=== PATIENT | female | born 1950 | race Caucasian/White ===

== ENCOUNTER 2018-02-13 18:23 | Emergency (ER) | payer OTHER, BC ==
--- NOTE | 2018-02-13 18:46 | EDPHY ---
H & P Smoking Status: Never smoked Time Seen by Provider: 02/13/18 18:38 HPI/ROS: CLINICAL IMPRESSION: Closed left comminuted intra-articular distal radius fracture ASSESSMENT/PLAN: 67-year-old female presents to the emergency department after a ground level fall onto the left wrist. No open wound, distal neurovascular exam intact. X- ray findings show a closed, comminuted, displaced distal radius fracture. Patient received a hematoma block and was placed in traction with joint reduction performed by Dr. Mccloud. She was then placed in a sugar-tong splint and sling. Neurovascular exams remained intact prior to and after sling placement. Orthopedic referral given, pain meds prescribed, warning signs return to ED sooner outlined and discharge. DIFFERENTIAL DX: Differential diagnosis includes but not limited to acute fracture, dislocation, intra-articular fracture, neurovascular injury. ED PROCEDURES: Hematoma block and joint reduction with C-arm performed by Dr. Mccloud, please see his note for details. Procedure: Splint placement. A forearm sugar-tong and sling to left wrist was applied by photographic reproduction technician, supervised by myself. After application of the splint I returned and re- examined the patient. The splint was adequately immobilizing the joint and distal to the splint the patient's circulation and sensation was intact. ED COURSE: CHIEF COMPLAINT: Left wrist pain HPI: This is a pleasant 67-year-old female who presents to the emergency department after she fell off a chair while trying to hang a brief and landed on a flexed left wrist. Patient reports only wrist pain and no elbow pain. She is right- hand dominant. No open wounds. No reported sensory changes to the fingers or thumb. No forearm pain. She is declining pain medication at this time. PAST MEDICAL HISTORY: Hypothyroidism, depression Pertinent Past Surgical History: No prior orthopedic surgery Social History: , lives with her , vaccines up-to-date, right- hand dominant REVIEW OF SYSTEMS: All other systems negative Constitutional: No fever, no chills Musculoskeletal: No deformity, + joint pain Skin: No rashes, color change or open wounds. Neurological: No sensory loss or weakness. PHYSICAL EXAM: General Appearance: Alert, oriented, appropriate for age, cooperative, NAD, well hydrated, non-toxic appearing, VSS, no hypoxia. Neurological: Alert and oriented x 3, normal sensation and strength of extremities Skin: Warm, dry, no rashes, no nodules on palpation. Musculoskeletal: Obvious deformity to left wrist. Distal neurovascular exam intact. Cap refill 2 sec. No forearm or elbow pain. No open wound. MEDICAL DECISION MAKING: Patient was seen independently.Secondary supervising physician at time of evaluation was Dr. Mccloud. Diagnosis: Closed, comminuted, distal left radius fracture . New, requires workup Summary: See assessment and plan for summary of ED visit Independent visualization of images, tracing, or specimens yes. Discussed patient with another provider Dr. Mccloud Patient Progress stable. (Campbell Naranjo) Constitutional: Initial Vital Signs Temperature (C) 36.3 C 02/13/18 18:28 Heart Rate 57 L 02/13/18 18:28 Respiratory Rate 18 02/13/18 18:28 O2 Sat (%) 94 02/13/18 18:28 O2 Delivery Mode Room Air Allergies/Adverse Reactions: No Known Allergies Allergy (Unverified 02/13/18 18:31) Home Medications: Medication Instructions Recorded Celexa 08/19/15 Phenazopyridine HCl [Pyridium] 100 mg PO TID PRN #6 tab 08/19/15 Synthroid 08/19/15 traZODONE 08/19/15 Hydrocodone/APAP 5/325 [[place] 1 - 2 tab PO Q4H PRN #10 tab 02/13/18 5/325 (*)] MDM/Departure - [facility] Imaging: I viewed and interpreted images myself - [facility] Imaging Results: Imaging Impressions Wrist X-Ray 02/13/18 18:32 Impression: Comminuted intra-articular fracture of the distal radius as described with ulnar styloid fracture. Wrist X-Ray 02/13/18 19:25 Impression: Comminuted intra-articular fracture of the distal radius as described with ulnar styloid fracture. ED Course/Re-evaluation: Independent physician evaluation: I evaluated and participated in the management of the patient. I also evaluated the patient independently. My co-signature indicates that I have reviewed this chart and I agree with the findings and plan of care as documented. My personal H&P findings include: Patient presents to the ED with a obvious displaced and angulated Colles fracture from mechanical fall involving the left wrist. She has no complaints of acute numbness or weakness. Physical exam: General Appearance: Alert, no distress Head: Atraumatic Eyes: Pupils equal, round, reactive ENT, Mouth: No hemotympanum, no oral trauma Neck: Nontender, trachea midline Respiratory: No chest wall tender, no subcutaneous air, lungs clear bilaterally Cardiovascular: Regular rate and rhythm Abdomen: Abdomen is soft and nontender, pelvis stable Skin: No lacerations, No abrasion Back: No midline T/L/S pain Extremities: Obvious deformity noted to the left wrist Neurological: 5/5 strength and sensation noted throughout the left upper extremity ED course: Procedure: Procedure: Dislocation reduction. Indication: Dislocation The fracture dislocation involving the left wrist was reduced in the usual fashion without complications. The patient did undergo a hematoma block performed by myself under sterile conditions with 10 mL of 1% lidocaine. Post reduction the patient's neurovascular exam is normal. Post reduction x-ray demonstrates reduction of the joint to the anatomic position. The procedure was performed by myself. The patient has been placed in a sugar-tong splint. She will be referred to Dr. Rodrigues from Orthopedic surgery. (Artie Mccloud) - Depart Disposition: Home, Routine, Self-Care Clinical Impression: Left wrist fracture Condition: Good Instructions: Wrist Fracture in Adults (ED), Closed Reduction (ED) Additional Instructions: DISCHARGE INSTRUCTIONS FROM YOUR DOCTOR Thank you for visiting our emergency department today. Please keep in mind that discharge from the emergency department does not mean that there is nothing wrong - it simply means that we have not identified an emergency condition that requires further evaluation or treatment in the hospital. You should always plan to follow up with primary care for re-evaluation of your condition in the next 2-3 days. If you have been referred to a specialist, please call as soon as possible (today or tomorrow) to schedule your follow up appointment at the appropriate time. You have a wrist fracture that is going to need surgical consultation with orthopedics. A referral was given. Your fracture was reduced in the ER and splinted. Please keep the splint on until you see Orthopedics. Rest and elevate the affected extremity as much as possible. Ice the affected areas 20 min on, 20 min off for the next several days. Do not drive or drink alcohol while taking narcotic pain medication. Please be aware, narcotics can cause constipation, lethargy, and increase your risk of falling. Do not take Tylenol at the same time as Vicodin or Percocet. Return to the emergency department for severe pain, loss of sensation to her fingers or hand, fevers, or any other concern. Please call Orthopedics tomorrow to schedule a followup appointment People present with illnesses and injuries in different ways, and it is always possible that we have missed something. You may always return for re-evaluation if symptoms worsen or if they are not improving or if you develop new/different symptoms. Again, thank you for choosing our emergency department. We hope that you feel better. Prescriptions: Hydrocodone/APAP 5/325 [[place] 5/325 (*)] 1 - 2 tab PO Q4H PRN #10 tab PRN Reason: Pain, Moderate Referrals: Ashley Olmos [Primary Care Provider] - As per Instructions Carmelita Rodrigues MD [Medical Doctor] - As per Instructions
[2018-02-13 20:16] VITALS: BP 139/85
== END 2018-02-13 20:17 | disposition home or self-care (01) ==
LOC: MERGE 18:23
PROC: 0RSPXZZ Reposition Left Wrist Joint, External Approach (ICD-10-PCS; principal; 2018-02-13)
DX: S52.572A Other intraarticular fracture of lower end of left radius, initial encounter for closed fracture (principal); S52.612A Displaced fracture of left ulna styloid process, initial encounter for closed fracture; W01.198A Fall on same level from slipping, tripping and stumbling with subsequent striking against other object, initial encounter
CPT/HCPCS: 25660; 73100; 73110; 99284; A4565